=== PATIENT | female | born 1985 | race Caucasian/White ===

== ENCOUNTER 2021-02-01 15:35 | Emergency (ER) | payer BC ==
[~2021-02-01] VITALS: Ht 162.6 cm; Wt 59.0 kg
[2021-02-01 15:59] LABS: BASOPHILS % (AUTO) 0.7 % (0.0-2.0); EOSINOPHILS % (AUTO) 0.2 % (0.0-6.0); HEMATOCRIT 38 % (33-45); HEMOGLOBIN 12.8 g/dL (11.5-14.8); LYMPHOCYTES # (AUTO) 1.7 /CMM (0.8-4.8); LYMPHOCYTES % (AUTO) 27.8 % (20.0-44.0); MEAN CORPUSCULAR HGB CONC 34 g/dl (31.0-36.0); MEAN CORPUSCULAR VOLUME 92 fL (82-100); MONOCYTES # (AUTO) 0.2 /CMM (0.1-1.30); NEUTROPHILS # (AUTO) 4.1 /CMM (1.8-8.9); NEUTROPHILS % (AUTO) 67.3 % (43.0-81.0); PLATELET COUNT (AUTO) 370 /CMM (150-450); RED BLOOD CELL COUNT(AUTO) 4.16 MIL/uL (4.0-5.2); WHITE BLOOD COUNT (AUTO) 6.2 K/uL (4.3-11.0)
[2021-02-01] MEDS ORDERED: IV NS 0.9% 1,000 ML BAG IV ONE ×2 (16:00)
--- NOTE | 2021-02-01 16:02 | NUR ---
ANA CRISTINA [address] C/O NEAR SYNCOPE AND HYPOTENSION. PT AAOX4, RR EVEN & UNLABORED. DENIES CP, SOB, DIZZINESS, N/V AT THIS TIME. PT SEEN & EVAL'D BY DR. SHEN. PLACED ON CLAY PIGEON LOADER. WILL CONT TO MONITOR.
[2021-02-01 16:11] LABS: CALCIUM, SERUM 8.6 mg/dL (8.5-10.1); CARBON DIOXIDE 24 mmol/L (21-32); CHLORIDE 108 mmol/L (98-107); CREATININE 0.7 mg/dL (0.6-1.3); GLUCOSE 78 mg/dL (74-106); POTASSIUM 3.2 mmol/L (3.5-5.1); SODIUM SERUM 144 mmol/L (136-145); UREA NITROGEN, BLOOD 19 mg/dL (7-18)
[2021-02-01 16:18] LABS: ALANINE AMINOTRANSFERASE 14 U/L (12-78); ALKALINE PHOSPHATASE 53 U/L (46-116); ASPARTATE AMINOTRANSFERASE 12 U/L (15-37); BILIRUBIN,DIRECT 0.1 mg/dL (0.0-0.2); BILIRUBIN,TOTAL 0.3 mg/dL (0.2-1.0); TOTAL PROTEIN, SERUM 7.6 g/dL (6.4-8.2)
[2021-02-01 16:19] LABS: ALCOHOL, BLOOD 44 mg/dL (0-0)
--- NOTE | 2021-02-01 18:40 | NUR ---
PT ASLEEP, EASILY AWAKEN BY VERBAL STIMULI. RR EVEN & UNLABORED. DENIES ANY DISCOMFORT & WILL CONT TO MONITOR.
--- NOTE | 2021-02-01 19:54 | NUR ---
UNABLE TO PROVIDE URINE SAMPLE
--- NOTE | 2021-02-01 20:01 | NUR ---
PT AAOX4, REQUESTING TO BE DISCHARGED. ER MD AWARE.
--- NOTE | 2021-02-01 20:13 | NUR ---
SPOKE TO ER MD REGARDING PT'S BP. ER MD WILL SPEAK TO THE PT REGARDING ADMISSION.
--- NOTE | 2021-02-01 20:19 | NUR ---
ER MD AT BEDSIDE SPEAKING TO PT REGARDING ADMISSION. PT STATED SHE DOES NOT WANT TO BE ADMITTED.
--- NOTE | 2021-02-01 20:39 | NUR ---
ER MD AT BEDSIDE SPEAKING TO PT REGARDING AMA. PT ROLLED HER EYES AND STATED SHE IS AWARE OF THE SITUATION AND WOULD LIKE TO AMA.
--- NOTE | 2021-02-01 20:39 | NUR ---
Patient does not wish to proceed with medical care recommended by Dr. Marquita Richard. Patient given information related to possible complications, up to and including , which could occur as a result of leaving the hospital at this time. Patient verbalizes understanding of risks involved due to leaving against medical advice. Patient refused to sign AMA form.
[2021-02-01 20:41] VITALS: BP 75/57
--- NOTE | 2021-02-01 20:41 | NUR ---
PT AMBULATED OUT OF ED. VSS. STATED SHE WILL BE PICKED UP BY A FRIEND.
--- NOTE | 2021-02-01 20:41 | NUR ---
PT AMBULATORY WITH STEADY GAIT. AMBULATED TO THE RESTROOM.
== END 2021-02-01 20:41 | disposition left against medical advice (07) ==
LOC: ER 15:36
DX: I95.1 Orthostatic hypotension (principal); F10.129 Alcohol abuse with intoxication, unspecified; R74.02 Elevation of levels of lactic acid dehydrogenase [LDH]; Z88.8 Allergy status to other drugs, medicaments and biological substances; Y90.2 Blood alcohol level of 40-59 mg/100 ml
CPT/HCPCS: 36415; 80048; 80076; 80320; 83605; 84484; 84702; 85025; 93005; 96360; 99284; J7030 ×2; G0480